=== PATIENT | male | born 1960 | race Caucasian/White ===

== ENCOUNTER 2017-09-09 18:17 | Emergency (ER) | payer MEDICARE ==
[~2017-09-09] VITALS: Ht 172.7 cm; Wt 100.0 kg
[~2017-09-09 18:17] MED LIST: ACCURETIC PO; AMLODIPINE5 MG PO; ARAVA10 MG PO; ATENOLOL25 MG PO; BUSPIRONE5 MG PO; ESCITALOPRAM OX10 MG PO; HYDROCO/APAP1 TA9 PO; LAMICTAL150 M1 PO; OMEPRAZOLE20 M2 PO; PRAVASTATIN SOD20 MG PO; PREDNISONE5 MG PO; RISPERIDONE0.5 MG PO; SYSTANE OP; TEMAZEPAM30 MG PO; TRAZODONE50 MG PO
[2017-09-09] MEDS ORDERED: CARDIZEM30 MG PO (18:31)
[2017-09-09] MEDS ORDERED: GABAPENTIN100 MG PO (18:32)
[2017-09-09 19:57] LABS: HEMATOCRIT 46.1 % (39.0-50.0); HEMOGLOBIN 16.2 g/dl (14.0-18.0); IMMATURE GRANULOCYTES 0.6 % (0.0-1.0); MEAN CELL VOLUME 83.4 fL CALC (80.0-100.0); MEAN CORPUSCULAR HGB 29.3 pG CALC (26.0-32.0); MEAN CORPUSCULAR HGB CONC 35.1 g/L CALC (32.0-36.0); NEUT# 4.28 thou/uL (1.82-7.42); RED BLOOD COUNT 5.53 mill/uL (4.70-6.10); RED CELL DISTRI WIDTH 14.3 % (11.5-15.5)
[2017-09-09 20:04] LABS: ALBUMIN 4.3 g/dL (3.2-5.0); ALKALINE PHOSPHATASE 72 u/l (38-126); ANION GAP 14 (6-22 (CALC)); BILIRUBIN, TOTAL 0.8 mg/dL (0.0-1.4); BUN 17 mg/dL (9-20); BUN/CREATININE RATIO 13 (12-20 (CALC)); CALCIUM 9.2 mg/dL (8.4-10.2); CARBON DIOXIDE 27 mmol/l (22-30); CHLORIDE 103 mmol/l (95-108); CREATININE 1.3 mg/dL (0.7-1.3); GFR 57 ML/MIN (>=60 (CALC)); GFR FOR AFR.AMER. > 60 ML/MIN (>=60 (CALC)); GLUCOSE 92 mg/dL (75-110); POTASSIUM 3.6 mmol/l (3.5-5.1); SGOT/AST 21 u/l (17-59); SGPT/ALT 35 u/l (21-72); SODIUM 141 mmol/l (137-146); TOTAL PROTEIN 6.8 g/dL (6.3-8.2)
[2017-09-09 21:26] LABS: URINE BILIRUBIN - DIPSTICK NEGATIVE (NEGATIVE); URINE BLOOD DIPSTICK TRACE-INTACT (NEGATIVE); URINE CLARITY CLEAR; URINE COLOR YELLOW; URINE GLUCOSE - DIPSTICK NEGATIVE (NEGATIVE); URINE KETONE NEGATIVE (NEGATIVE); URINE LEUK ESTERASE NEGATIVE (NEGATIVE); URINE NITRITE - DIPSTICK NEGATIVE (Negative); URINE PROTEIN - DIPSTICK TRACE mg/dL (NEG-TRACE); URINE UROBILINOGEN - DIPSTICK 0.2 E.U./dL (0.2)
[2017-09-10] MEDS ORDERED: ORPHENADRINE100 MG PO (01:54)
[2017-09-10] MEDS ORDERED: PERCOCET 5/325M1 TAB PO (01:54)
[2017-09-10 02:08] VITALS: BP 134/78
== END 2017-09-10 02:00 | disposition home or self-care (01) ==
LOC: ED 18:17
PROVIDERS: Emergency Medicine
DX: M54.5 Low back pain (principal); M79.652 Pain in left thigh

== ENCOUNTER 2017-12-07 02:56 | Inpatient (IN) | payer MEDICARE ==
[~2017-12-07] VITALS: Ht 175.3 cm; Wt 102.0 kg
[~2017-12-07 02:56] MED LIST changes: +CARDIZEM30 MG PO; +GABAPENTIN100 MG PO; +ORPHENADRINE100 MG PO; +PERCOCET 5/325M1 TAB PO
[2017-12-07] MEDS ORDERED: CYCLOBENZAPR5 MG PO (03:15)
[2017-12-07] MEDS ORDERED: HYDROXYZ HCL25 MG PO (03:16)
[2017-12-07] MEDS ORDERED: PAROXETIN ER12.5 MG PO (03:18)
[2017-12-07] MEDS ORDERED: OXYCOD-APAP1 TAB PO (03:19)
[2017-12-07 03:28] LABS: INFLUENZA A NONE DETECTED (NONE DETECT); INFLUENZA B NONE DETECTED (NONE DETECT)
[2017-12-07 03:46] LABS: HEMATOCRIT 47.3 % (39.0-50.0); HEMOGLOBIN 16.5 g/dl (14.0-18.0); IMMATURE GRANULOCYTES 0.3 % (0.0-1.0); MEAN CELL VOLUME 83.6 fL CALC (80.0-100.0); MEAN CORPUSCULAR HGB 29.2 pG CALC (26.0-32.0); MEAN CORPUSCULAR HGB CONC 34.9 g/L CALC (32.0-36.0); NEUT# 3.66 thou/uL (1.82-7.42); RED BLOOD COUNT 5.66 mill/uL (4.70-6.10); RED CELL DISTRI WIDTH 12.5 % (11.5-15.5)
[2017-12-07 03:57] LABS: ALBUMIN 4.4 g/dL (3.2-5.0); ALKALINE PHOSPHATASE 103 u/l (38-126); ANION GAP 18 (6-22 (CALC)); BILIRUBIN, TOTAL 0.9 mg/dL (0.0-1.4); BUN 20 mg/dL (9-20); BUN/CREATININE RATIO 12 (12-20 (CALC)); CARBON DIOXIDE 31 mmol/l (22-30); CHLORIDE 95 mmol/l (95-108); CREATININE 1.6 mg/dL (0.7-1.3); GFR 45 ML/MIN (>=60 (CALC)); GFR FOR AFR.AMER. 54 ML/MIN (>=60 (CALC)); SGOT/AST 22 u/l (17-59); SGPT/ALT 35 u/l (21-72); SODIUM 141 mmol/l (137-146); TOTAL PROTEIN 6.7 g/dL (6.3-8.2)
[2017-12-07 04:07] LABS: ACT PARTIAL THROMBO TIME 23.8 SECONDS (20.0-32.5); INTERNATIONAL NORMALIZED RATIO 0.9 RATIO (0.7-1.3); PROTHROMBIN TIME 10.2 SECONDS (9.0-12.5)
[2017-12-07 04:10] LABS: MYOGLOBIN 69 ng/mL (0 - 121)
[2017-12-07 05:45] VITALS: BP 138/70
[2017-12-07 07:59] VITALS: BP 124/61
[2017-12-07] MEDS ORDERED: GABAPENTIN400 MG PO (14:37)
[2017-12-07] MEDS ORDERED: DILTIAZEM60 M1 PO (14:39)
[2017-12-07] MEDS ORDERED: PRAVASTATIN SOD40 MG PO (14:41)
[2017-12-07] MEDS ORDERED: HYDROCHLOROT25 MG PO (14:42)
[2017-12-07 15:10] VITALS: BP 132/58
[2017-12-07 19:02] VITALS: BP 104/57
[2017-12-08] VITALS: BP 117/69
[2017-12-08 04:15] VITALS: BP 143/80
[2017-12-08 05:35] LABS: MEAN CELL VOLUME 83.6 fL CALC (80.0-100.0); MEAN CORPUSCULAR HGB 29.5 pG CALC (26.0-32.0); MEAN CORPUSCULAR HGB CONC 35.3 g/L CALC (32.0-36.0); RED BLOOD COUNT 4.81 mill/uL (4.70-6.10); RED CELL DISTRI WIDTH 12.5 % (11.5-15.5)
[2017-12-08 05:41] LABS: CREATININE 1.6 mg/dL (0.7-1.3)
[2017-12-08 05:47] LABS: POTASSIUM 3.8 mmol/l (3.5-5.1)
[2017-12-08 06:01] LABS: HEMATOCRIT 40.2 % (39.0-50.0); HEMOGLOBIN 14.2 g/dl (14.0-18.0)
[2017-12-08 07:34] VITALS: BP 130/76
[2017-12-08 09:34] LABS: URINE BILIRUBIN - DIPSTICK NEGATIVE (NEGATIVE); URINE BLOOD DIPSTICK NEGATIVE (NEGATIVE); URINE COLOR YELLOW; URINE GLUCOSE - DIPSTICK >=1000 mg/dL (NEGATIVE); URINE KETONE NEGATIVE (NEGATIVE); URINE LEUK ESTERASE NEGATIVE (NEGATIVE); URINE NITRITE - DIPSTICK NEGATIVE (Negative); URINE PH 6.5 (4.5-8.0); URINE PROTEIN - DIPSTICK NEGATIVE (NEG-TRACE); URINE SPECIFIC GRAVITY <=1.005
[2017-12-08 09:46] LABS: URINE CLARITY CLEAR
[2017-12-08] MEDS ORDERED: IPRATROPIU0.5 MG/3 M NEB (12:27)
[2017-12-08] MEDS ORDERED: PREDNISONE10 MG PO (12:27)
[2017-12-08] MEDS ORDERED: VIBRAMYCIN100 M2 PO (12:27)
[2017-12-08 13:14] VITALS: BP 129/81
[2017-12-08 16:42] VITALS: BP 142/90
== END 2017-12-08 17:10 | disposition home or self-care (01) | DRG 192 ==
LOC: ED 02:56 → ED-I 03:10 → ED 04:57 → MS2 04:58
PROVIDERS: Emergency Medicine; Nurse Practitioner Family; ADMIT Internal Medicine; ATTEND Internal Medicine
DX: J44.1 Chronic obstructive pulmonary disease with (acute) exacerbation (principal); E87.6 Hypokalemia; I12.9 Hypertensive chronic kidney disease with stage 1 through stage 4 chronic kidney disease, or unspecified chronic kidney disease; N18.2 Chronic kidney disease, stage 2 (mild); M06.9 Rheumatoid arthritis, unspecified; K22.70 Barrett's esophagus without dysplasia; R09.02 Hypoxemia; R06.89 Other abnormalities of breathing; K44.9 Diaphragmatic hernia without obstruction or gangrene; K29.70 Gastritis, unspecified, without bleeding; M54.16 Radiculopathy, lumbar region; G89.4 Chronic pain syndrome; R07.89 Other chest pain

== ENCOUNTER 2017-12-30 23:00 | Emergency (ER) | payer MEDICARE ==
[~2017-12-30] VITALS: Ht 175.3 cm; Wt 101.6 kg
[~2017-12-30 23:00] MED LIST changes: +CYCLOBENZAPR5 MG PO; +DILTIAZEM60 M1 PO; +GABAPENTIN400 MG PO; +HYDROCHLOROT25 MG PO; +HYDROXYZ HCL25 MG PO; +IPRATROPIU0.5 MG/3 M NEB; +OXYCOD-APAP1 TAB PO; +PAROXETIN ER12.5 MG PO; +PRAVASTATIN SOD40 MG PO; +PREDNISONE10 MG PO; +VIBRAMYCIN100 M2 PO
[2017-12-30 23:35] LABS: HEMATOCRIT 44.5 % (39.0-50.0); HEMOGLOBIN 15.7 g/dl (14.0-18.0); IMMATURE GRANULOCYTES 0.4 % (0.0-1.0); MEAN CELL VOLUME 81.7 fL CALC (80.0-100.0); MEAN CORPUSCULAR HGB 28.8 pG CALC (26.0-32.0); MEAN CORPUSCULAR HGB CONC 35.3 g/L CALC (32.0-36.0); NEUT# 3.08 thou/uL (1.82-7.42); RED BLOOD COUNT 5.45 mill/uL (4.70-6.10); RED CELL DISTRI WIDTH 12.8 % (11.5-15.5)
[2017-12-30 23:47] LABS: ALBUMIN 4.2 g/dL (3.2-5.0); ALKALINE PHOSPHATASE 92 u/l (38-126); AMYLASE < 30 u/l (30-110); ANION GAP 17 (6-22 (CALC)); BILIRUBIN, TOTAL 0.9 mg/dL (0.0-1.4); BUN 14 mg/dL (9-20); BUN/CREATININE RATIO 10 (12-20 (CALC)); CARBON DIOXIDE 33 mmol/l (22-30); CHLORIDE 96 mmol/l (95-108); CREATININE 1.5 mg/dL (0.7-1.3); GFR 48 ML/MIN (>=60 (CALC)); GFR FOR AFR.AMER. 59 ML/MIN (>=60 (CALC)); LIPASE 103 u/l (23-300); SGOT/AST 21 u/l (17-59); SGPT/ALT 43 u/l (21-72); SODIUM 143 mmol/l (137-146); TOTAL PROTEIN 6.7 g/dL (6.3-8.2)
[2017-12-30 23:49] LABS: POTASSIUM 2.9 mmol/l (3.5-5.1)
[2017-12-30 23:59] LABS: MYOGLOBIN 95 ng/mL (0 - 121)
[2017-12-31 01:40] LABS: URINE BILIRUBIN - DIPSTICK NEGATIVE (NEGATIVE); URINE BLOOD DIPSTICK NEGATIVE (NEGATIVE); URINE COLOR YELLOW; URINE GLUCOSE - DIPSTICK NEGATIVE (NEGATIVE); URINE KETONE NEGATIVE (NEGATIVE); URINE LEUK ESTERASE NEGATIVE (NEGATIVE); URINE NITRITE - DIPSTICK NEGATIVE (Negative); URINE PROTEIN - DIPSTICK NEGATIVE (NEG-TRACE); URINE UROBILINOGEN - DIPSTICK 0.2 E.U./dL (0.2)
[2017-12-31 01:46] LABS: URINE CLARITY CLEAR
[2017-12-31 02:00] VITALS: BP 117/76
== END 2017-12-31 02:08 | disposition home or self-care (01) ==
LOC: ED 23:00
PROVIDERS: Emergency Medicine
DX: R10.84 Generalized abdominal pain (principal); I12.9 Hypertensive chronic kidney disease with stage 1 through stage 4 chronic kidney disease, or unspecified chronic kidney disease; N18.3 Chronic kidney disease, stage 3 (moderate); J44.9 Chronic obstructive pulmonary disease, unspecified; K21.9 Gastro-esophageal reflux disease without esophagitis
CPT/HCPCS: S0164

== ENCOUNTER 2018-04-01 07:36 | Day surgery (SDC) | payer MEDICARE ==
[2018-04-01] MEDS ORDERED: LISINOPRIL20 MG PO (10:06)
[2018-04-01 11:07] VITALS: BP 131/82
== END 2018-04-01 11:20 | disposition home or self-care (01) ==
LOC: ENDO 07:36
PROVIDERS: ATTEND Internal Medicine Gastroenterology
PROC: 0DB58ZX Excision of Esophagus, Via Natural or Artificial Opening Endoscopic, Diagnostic (ICD-10-PCS; principal; 2018-04-01)
DX: K22.70 Barrett's esophagus without dysplasia (principal); K31.9 Disease of stomach and duodenum, unspecified; K21.9 Gastro-esophageal reflux disease without esophagitis; K76.89 Other specified diseases of liver; K29.70 Gastritis, unspecified, without bleeding; K44.9 Diaphragmatic hernia without obstruction or gangrene; I10 Essential (primary) hypertension; E78.00 Pure hypercholesterolemia, unspecified; F32.9 Major depressive disorder, single episode, unspecified; J44.9 Chronic obstructive pulmonary disease, unspecified; Z86.010 Personal history of colon polyps

== ENCOUNTER 2020-11-09 19:24 | Emergency (ER) | payer MEDICARE ==
[~2020-11-09] VITALS: Ht 175.3 cm; Wt 106.8 kg
[~2020-11-09 19:24] MED LIST changes: +LISINOPRIL20 MG PO
[2020-11-09 20:34] LABS: HEMOGLOBIN 13.8 g/dl (14.0-18.0); IMMATURE GRANULOCYTES 0.3 % (0.0-5.0); MEAN CORPUSCULAR HGB 29.2 pG CALC (26.0-32.0); MEAN CORPUSCULAR HGB CONC 33.7 g/dL CAL (32.0-36.0); NEUT# 4.54 thou/uL (1.82-7.42); RED BLOOD COUNT 4.73 mill/uL (4.70-6.10); RED CELL DISTRI WIDTH 14.4 % (11.5-15.5)
[2020-11-09 20:37] LABS: MEAN CELL VOLUME 86.7 fL CALC (80.0-100.0)
[2020-11-09 20:56] LABS: ALBUMIN 4.1 g/dL (3.2-5.0); BILIRUBIN, TOTAL 1.1 mg/dL (0.0-1.4); CREATININE 1.6 mg/dL (0.7-1.3); TOTAL PROTEIN 6.7 g/dL (6.3-8.2)
[2020-11-09 21:01] LABS: POTASSIUM 3.5 mmol/l (3.5-5.1)
[2020-11-09 21:10] LABS: ACT PARTIAL THROMBO TIME 24.3 SECONDS (20.0-32.5); PROTHROMBIN TIME 9.9 SECONDS (9.0-12.5)
[2020-11-09] MEDS ORDERED: LOSARTAN POTASS50 MG PO (21:55)
[2020-11-09] MEDS ORDERED: PREGABALIN75 MG PO (21:55)
[2020-11-09] MEDS ORDERED: TAMSULOSIN HCL0.4 MG PO (21:56)
[2020-11-09] MEDS ORDERED: PERCOCET1 TA4 PO (21:56)
[2020-11-09] MEDS ORDERED: K-DUR/KLOR-CON20 MEQ PO (21:57)
[2020-11-09] MEDS ORDERED: OMEPRAZOLE DR20 MG PO (21:57)
[2020-11-09] MEDS ORDERED: FOLIC ACID1 M1 PO (21:57)
[2020-11-09] MEDS ORDERED: ATORVASTATIN CA40 MG PO (21:58)
[2020-11-09] MEDS ORDERED: AMLODIPINE BESYL5 MG PO (21:58)
[2020-11-09] MEDS ORDERED: TRELEGY ELLIPTA1 AER IN (21:58)
[2020-11-09] MEDS ORDERED: METHOTREXATE2.5 MG PO (21:59)
[2020-11-09 22:00] VITALS: BP 135/82
== END 2020-11-09 22:10 | disposition home or self-care (01) ==
LOC: ED 19:24
PROVIDERS: Family Medicine
DX: S80.11XA Contusion of right lower leg, initial encounter (principal); I12.9 Hypertensive chronic kidney disease with stage 1 through stage 4 chronic kidney disease, or unspecified chronic kidney disease; N18.30 Chronic kidney disease, stage 3 unspecified; K21.9 Gastro-esophageal reflux disease without esophagitis; J44.9 Chronic obstructive pulmonary disease, unspecified; W17.89XA Other fall from one level to another, initial encounter; M79.661 Pain in right lower leg

== ENCOUNTER 2021-03-14 23:29 | Emergency (ER) | payer MEDICARE ==
[~2021-03-14] VITALS: Ht 175.3 cm; Wt 109.0 kg
[~2021-03-14 23:29] MED LIST changes: +AMLODIPINE BESYL5 MG PO; +ATORVASTATIN CA40 MG PO; +FOLIC ACID1 M1 PO; +K-DUR/KLOR-CON20 MEQ PO; +LOSARTAN POTASS50 MG PO; +METHOTREXATE2.5 MG PO; +OMEPRAZOLE DR20 MG PO; +PERCOCET1 TA4 PO; +PREGABALIN75 MG PO; +TAMSULOSIN HCL0.4 MG PO; +TRELEGY ELLIPTA1 AER IN
[2021-03-15 00:10] LABS: HEMATOCRIT 42.8 % (39.0-50.0); HEMOGLOBIN 14.1 g/dl (14.0-18.0); IMMATURE GRANULOCYTES 0.4 % (0.0-5.0); MEAN CELL VOLUME 86.6 fL CALC (80.0-100.0); MEAN CORPUSCULAR HGB 28.5 pG CALC (26.0-32.0); MEAN CORPUSCULAR HGB CONC 32.9 g/dL CAL (32.0-36.0); NEUT# 3.18 thou/uL (1.82-7.42); RED BLOOD COUNT 4.94 mill/uL (4.70-6.10); RED CELL DISTRI WIDTH 15.2 % (11.5-15.5)
[2021-03-15 00:35] LABS: ALBUMIN 4.1 g/dL (3.2-5.0); BILIRUBIN, TOTAL 1.2 mg/dL (0.0-1.4); CREATININE 1.7 mg/dL (0.7-1.3); POTASSIUM 3.8 mmol/l (3.5-5.1); TOTAL PROTEIN 6.8 g/dL (6.3-8.2)
[2021-03-15] MEDS ORDERED: PREDNISONE50 MG PO (00:54)
[2021-03-15] MEDS ORDERED: DOXYCYCL HYC100 MG PO (00:54)
[2021-03-15 01:14] VITALS: BP 130/87
== END 2021-03-15 01:14 | disposition home or self-care (01) ==
LOC: ED 23:29
PROVIDERS: Family Medicine
DX: J44.1 Chronic obstructive pulmonary disease with (acute) exacerbation (principal); I12.9 Hypertensive chronic kidney disease with stage 1 through stage 4 chronic kidney disease, or unspecified chronic kidney disease; N18.30 Chronic kidney disease, stage 3 unspecified; K21.9 Gastro-esophageal reflux disease without esophagitis

== ENCOUNTER 2021-05-28 17:04 | Emergency (ER) | payer MEDICARE ==
[~2021-05-28] VITALS: Ht 175.3 cm; Wt 112.7 kg
[~2021-05-28 17:04] MED LIST changes: +DOXYCYCL HYC100 MG PO; +PREDNISONE50 MG PO
[2021-05-28] MEDS ORDERED: OXYCODONE10 M1 PO (18:57)
[2021-05-28] MEDS ORDERED: ABILIFY MYCITE PO (18:57)
[2021-05-28] MEDS ORDERED: TRAZODONE50 MG PO (18:58)
[2021-05-28] MEDS ORDERED: BUSPIRONE5 MG PO (19:00)
[2021-05-28] MEDS ORDERED: QC ASPIRIN LOW81 M1 PO (19:01)
[2021-05-28] MEDS ORDERED: PAROXETINE10 MG PO (19:01)
[2021-05-28] MEDS ORDERED: HYDROXYZINE HYD25 MG PO (19:02)
[2021-05-28] MEDS ORDERED: METHOTREXATE S2.5 MG PO (19:02)
[2021-05-28 19:03] LABS: HEMATOCRIT 44.1 % (39.0-50.0); HEMOGLOBIN 14.8 g/dl (14.0-18.0); IMMATURE GRANULOCYTES 0.3 % (0.0-5.0); MEAN CELL VOLUME 88.6 fL CALC (80.0-100.0); MEAN CORPUSCULAR HGB 29.7 pG CALC (26.0-32.0); MEAN CORPUSCULAR HGB CONC 33.6 g/dL CAL (32.0-36.0); NEUT# 8.03 thou/uL (1.82-7.42); RED BLOOD COUNT 4.98 mill/uL (4.70-6.10); RED CELL DISTRI WIDTH 14.4 % (11.5-15.5)
[2021-05-28] MEDS ORDERED: VITAMIN D320 MCG PO (19:05)
[2021-05-28 19:23] LABS: ALBUMIN 4.4 g/dL (3.2-5.0); ALKALINE PHOSPHATASE 97 u/l (38-126); ANION GAP 17 (6-22 (CALC)); BILIRUBIN, TOTAL 1.7 mg/dL (0.0-1.4); BUN 24 mg/dL (9-20); BUN/CREATININE RATIO 7 (12-20 (CALC)); CARBON DIOXIDE 25 mmol/l (22-30); CHLORIDE 100 mmol/l (95-108); CREATININE 3.4 mg/dL (0.7-1.3); GFR 19 ML/MIN (>=60 (CALC)); GFR FOR AFR.AMER. 23 ML/MIN (>=60 (CALC)); POTASSIUM 4.3 mmol/l (3.5-5.1); SGOT/AST 30 u/l (17-59); SODIUM 137 mmol/l (137-146); TOTAL PROTEIN 7.6 g/dL (6.3-8.2)
[2021-05-28 19:54] LABS: MYOGLOBIN 776 ng/mL (0 - 121)
[2021-05-28 21:48] LABS: URINE BILIRUBIN - DIPSTICK NEGATIVE (NEGATIVE); URINE BLOOD DIPSTICK NEGATIVE (NEGATIVE); URINE COLOR YELLOW; URINE GLUCOSE - DIPSTICK NEGATIVE (NEGATIVE); URINE KETONE NEGATIVE (NEGATIVE); URINE LEUK ESTERASE NEGATIVE (NEGATIVE); URINE PROTEIN - DIPSTICK 30 mg/dL (NEG-TRACE); URINE SPECIFIC GRAVITY 1.025; URINE UROBILINOGEN - DIPSTICK 0.2 E.U./dL (0.2)
[2021-05-28 21:52] LABS: URINE NITRITE - DIPSTICK NEGATIVE (Negative)
[2021-05-28 21:53] LABS: URINE RBC 0-2 RBC/hpf (0-5); URINE WBC 0-2 WBC/hpf (0-5)
[2021-05-28] MEDS ORDERED: ZITHROMAX250 MG PO (22:07)
[2021-05-28 22:18] VITALS: BP 107/56
== END 2021-05-28 22:30 | disposition home or self-care (01) ==
LOC: ED 17:04
PROVIDERS: Emergency Medicine; Family Medicine
DX: J18.9 Pneumonia, unspecified organism (principal); J44.0 Chronic obstructive pulmonary disease with (acute) lower respiratory infection; I12.9 Hypertensive chronic kidney disease with stage 1 through stage 4 chronic kidney disease, or unspecified chronic kidney disease; N18.2 Chronic kidney disease, stage 2 (mild); M62.82 Rhabdomyolysis; Z20.822 Contact with and (suspected) exposure to COVID-19

== ENCOUNTER 2021-08-18 17:22 | Emergency (ER) | payer MEDICARE ==
[~2021-08-18] VITALS: Ht 175.3 cm; Wt 112.3 kg
[~2021-08-18 17:22] MED LIST changes: +ABILIFY MYCITE PO; +HYDROXYZINE HYD25 MG PO; +METHOTREXATE S2.5 MG PO; +OXYCODONE10 M1 PO; +PAROXETINE10 MG PO; +QC ASPIRIN LOW81 M1 PO; +VITAMIN D320 MCG PO; +ZITHROMAX250 MG PO
[2021-08-18] MEDS ORDERED: VITAMIN D PO (17:39)
[2021-08-18] MEDS ORDERED: ARIPIPRAZOLE15 MG PO (17:42)
[2021-08-18] MEDS ORDERED: PREGABALIN100 MG PO (17:42)
[2021-08-18] MEDS ORDERED: TRAZODONE100 MG PO (17:43)
[2021-08-18] MEDS ORDERED: HYDROXYZ HCL25 MG PO (17:44)
[2021-08-18] MEDS ORDERED: ISOSORBIDE MONO30 MG PO (17:44)
[2021-08-18] MEDS ORDERED: ADLT ASA LOW81 MG PO (17:45)
[2021-08-18] MEDS ORDERED: PAROXETINE30 MG PO (17:45)
[2021-08-18] MEDS ORDERED: BUSPIRONE30 MG PO (17:46)
[2021-08-18] MEDS ORDERED: VENTOLIN HFA IN (17:47)
[2021-08-18] MEDS ORDERED: KEFLEX500 MG PO (18:13)
[2021-08-18 18:15] VITALS: BP 162/80
== END 2021-08-18 18:15 | disposition home or self-care (01) ==
LOC: ED 17:22
DX: S60.522A Blister (nonthermal) of left hand, initial encounter (principal); I12.9 Hypertensive chronic kidney disease with stage 1 through stage 4 chronic kidney disease, or unspecified chronic kidney disease; N18.30 Chronic kidney disease, stage 3 unspecified; K21.9 Gastro-esophageal reflux disease without esophagitis; J44.9 Chronic obstructive pulmonary disease, unspecified; X58.XXXA Exposure to other specified factors, initial encounter

== ENCOUNTER 2022-01-05 20:19 | Emergency (ER) | payer MEDICARE ==
[~2022-01-05 20:19] MED LIST changes: +ADLT ASA LOW81 MG PO; +ARIPIPRAZOLE15 MG PO; +BUSPIRONE30 MG PO; +ISOSORBIDE MONO30 MG PO; +KEFLEX500 MG PO; +PAROXETINE30 MG PO; +PREGABALIN100 MG PO; +TRAZODONE100 MG PO; +VENTOLIN HFA IN; +VITAMIN D PO
== END 2022-01-05 21:46 | disposition left against medical advice (07) ==
LOC: ED 20:19 → LWOBS 20:59
DX: Z53.21 Procedure and treatment not carried out due to patient leaving prior to being seen by health care provider (principal)